=== PATIENT | male | born 1970 | race African-American/Black ===

== ENCOUNTER 2019-11-03 06:32 | Emergency (ER) | payer SELFPAY ==
[2019-11-03 06:35] VITALS: BP 120/80; PULSE 94; RESP 18; TEMP 36.4; O2SAT 100
--- NOTE | 2019-11-03 06:47 | ED.NAVMDI ---
HPI - Nausea/Vomiting/Diarrhea <Lawanda Cook MD - Last Filed: 11/03/19 06:52> General Chief complaint: Nausea/Vomiting/Diarrhea Stated complaint: diarrhea x 2 days Time Seen by Provider: 11/03/19 06:41 Source: patient Mode of arrival: Ambulatory Limitations: no limitations History of Present Illness HPI Narrative: 49-year-old gentleman with a previous history of gastric ulcers with laser surgery who presents with almost 72 hours of and liquid profuse diarrheal stool without blood, mucus or vomiting. He is from [place] and has been in the [place] area for the last 3 weeks working with the [employer]. He does not describe any unusual travels be on that, no and else around him has been ill and he has never had similar symptoms. He is not describing dizziness, orthostasis, abdominal pain, chest pain, dyspnea. Related Data Previous Rx's Medication Instructions Recorded omeprazole 40 mg PO DAILY #30 cap 11/03/19 Review of Systems <Lawanda Cook MD - Last Filed: 11/03/19 06:52> Review of Systems Narrative: All systems reviewed and are unremarkable except as noted in HPI and below Patient History <Lawanda Cook MD - Last Filed: 11/03/19 06:52> Medical History (Updated 11/03/19 @ 07:50 by Sherri Santiago DO) Gastric cardia ulcer (Acute) Surgical History (Updated 11/03/19 @ 06:52 by Lawanda Cook MD) History of gastric surgery (Acute) Social History Smoking Status: Current every day smoker Smoking Status: Current every day smoker alcohol intake frequency: a few times a week Substance Use Type: marijuana Exam <Lawanda Cook MD - Last Filed: 11/03/19 06:52> Narrative Exam Narrative: General: Healthy appearing, in no acute distress. Able to give a complete and coherent history. Well-nourished well-developed HEENT: Moist mucous membranes, normal sclera with reactive pupils, Neck: supple Respiratory: Lungs are clear to auscultation, no wheezing no rales no rhonchi. Full and symmetrical air movement Cardiac: Regular rate and rhythm no murmurs no bruits Abdomen: Soft nontender good bowel tones, no flank pain Skin: Warm and dry, no rashes Neurologic: Grossly neurologically intact with no obvious asymmetries or abnormalities Extremities: No trauma, well perfused Psych: Cooperative, appropriate insight and affect Initial Vital Signs Initial Vital Signs: Vital Signs Temperature 97.6 F 11/03/19 06:35 Pulse Rate 94 H 11/03/19 06:35 Respiratory Rate 18 11/03/19 06:35 Blood Pressure 120/80 11/03/19 06:35 Pulse Oximetry 100 11/03/19 06:35 <Sherri Santiago DO - Last Filed: 11/03/19 09:44> Initial Vital Signs Initial Vital Signs: Vital Signs Temperature 97.6 F 11/03/19 06:35 Pulse Rate 94 H 11/03/19 06:35 Respiratory Rate 18 11/03/19 06:35 Blood Pressure 120/80 11/03/19 06:35 Pulse Oximetry 100 11/03/19 06:35 Course <Lawanda Cook MD - Last Filed: 11/03/19 06:52> Orders Ordered: ED Orders 11/03/19 06:45 Complete Blood Count AUTO DIFF Stat Comprehensive Metabolic Panel Stat 11/03/19 07:00 GI Panel (Film Array) Stat Discontinued Medications Sodium Chloride (Normal Saline 0.9%) 1,000 mls @ 1,000 mls/hr IV BOLUS ONE Stop: 11/03/19 07:47 Last Infusion: 11/03/19 08:30 Dose: 0 mls/hr Documented by: Admin: 11/03/19 07:30 Dose: 1,000 mls/hr Documented by: ROBYN Vital Signs Vital signs: Vital Signs - 8 hr 11/03/19 06:35 11/03/19 08:07 11/03/19 09:19 Temperature 97.6 F Pulse Rate 94 H 73 78 Respiratory Rate 18 14 16 Blood Pressure 120/80 Blood Pressure [Right Arm] 124/64 125/72 Pulse Oximetry 100 100 100 <Sherri Santiago DO - Last Filed: 11/03/19 09:44> Orders Ordered: ED Orders 11/03/19 06:45 Complete Blood Count AUTO DIFF Stat Comprehensive Metabolic Panel Stat 11/03/19 07:00 GI Panel (Film Array) Stat Discontinued Medications Sodium Chloride (Normal Saline 0.9%) 1,000 mls @ 1,000 mls/hr IV BOLUS ONE Stop: 11/03/19 07:47 Last Infusion: 11/03/19 08:30 Dose: 0 mls/hr Documented by: Admin: 11/03/19 07:30 Dose: 1,000 mls/hr Documented by: ROBYN Vital Signs Vital signs: Vital Signs - 8 hr 11/03/19 06:35 11/03/19 08:07 11/03/19 09:19 Temperature 97.6 F Pulse Rate 94 H 73 78 Respiratory Rate 18 14 16 Blood Pressure 120/80 Blood Pressure [Right Arm] 124/64 125/72 Pulse Oximetry 100 100 100 MDM - Nausea/Vomiting/Diarrhea <Lawanda Cook MD - Last Filed: 11/03/19 06:52> Lab Data Result diagrams: 11/03/19 06:45 11/03/19 06:45 Labs: Lab Results 11/03/19 11/03/19 11/03/19 Range/Units 06:45 06:45 07:00 WBC 10.3 (4.5-11.0) X10^3/uL RBC 5.27 (4.5-5.9) X10^6/uL Hgb 15.1 (13.5-17.5) g/dL Hct 45.7 (41-53) % MCV 86.7 (80-100) fL MCH 28.7 (26-34) PG MCHC 33.0 (30-36) % RDW 14.2 (11.6-14.8) % Plt Count 283 (150-400) X10^3/uL Neut % (Auto) 60.0 (50-75) % Lymph % (Auto) 25.5 (25-40) % [place] % (Auto) 12.1 (3-14) % Eos % (Auto) 1.6 L (2-4) % Baso % (Auto) 0.8 (0-2) % Neut # (Auto) 6200 (1012-4368) /uL Lymph # (Auto) 2600 (0879-6773) /uL [place] # (Auto) 1200 H (0-900) /uL Eos # (Auto) 200 (0-450) /uL Baso # (Auto) 100 (0-100) /uL Sodium 137 (137-145) mmol/L Potassium 4.3 (3.4-5.1) mmol/L Chloride 102 (98-107) mmol/L Carbon Dioxide 27 (22-32) mmol/L BUN 18 (9-20) mg/dL Creatinine 1.16 (0.66-1.25) mg/dL Estimated GFR > 60.0 (>60) mL/min BUN/Creatinine Ratio 15.5 (6-22) Glucose 90 (70-100) mg/dL Calcium 9.3 (8.4-10.2) mg/dL Total Bilirubin 1.3 (0.2-1.3) mg/dL AST 41 (17-59) IU/L ALT 24 (<50) IU/L Alkaline Phosphatase 91 (38-126) U/L Total Protein 8.2 (6.3-8.2) g/dL Albumin 4.7 (3.5-5.0) g/dL Globulin 3.5 (1.7-4.1) g/dL Albumin/Globulin Ratio 1.3 (1.0-2.8) Stl C. cayetanensis PCR Not detected (Not Detect) Stool Rotavirus (PCR) Not detected (Not Detect) Stool Adenovirus (PCR) Not detected (Not Detect) Stool Astrovirus (PCR) Not detected (Not Detect) Stool Cryptosporidium PCR Not detected (Not Detect) Stl E.coli Shiga Tox PCR Not detected (Not Detect) St Sh/Enteroin Ecoli PCR Not detected (Not Detect) Stool E coli O157 PCR Not detected (Not Detect) Stl Enterotoxigenic E PCR Not detected (Not Detect) Stool EPEC (PCR) Not detected (Not Detect) Stl E. histolytica PCR Not detected (Not Detect) Stool Giardia Lamblia PCR Not detected (Not Detect) Stool Sapovirus (PCR) Not detected (Not Detect) Stl P. shigelloides PCR Not detected (Not Detect) St Y.enterocolitica PCR Not detected (Not Detect) Stool Vibrio (PCR) Not detected (Not Detect) Stl Vibrio cholerae PCR Not detected (Not Detect) Stl Enteroaggr Ecoli PCR Not detected (Not Detect) Stl Norovirus GI/GII PCR Not detected (Not Detect) Campylobacter (PCR) Not detected (Not Detect) C. difficile Tox (PCR) Not detected (Not Detect) Salmonella (PCR) Not detected (Not Detect) <Sherri Santiago, DO - Last Filed: 11/03/19 09:44> Lab Data Attestation: I reviewed the patient's lab results. Labs: Lab Results 11/03/19 11/03/19 11/03/19 Range/Units 06:45 06:45 07:00 WBC 10.3 (4.5-11.0) X10^3/uL RBC 5.27 (4.5-5.9) X10^6/uL Hgb 15.1 (13.5-17.5) g/dL Hct 45.7 (41-53) % MCV 86.7 (80-100) fL MCH 28.7 (26-34) PG MCHC 33.0 (30-36) % RDW 14.2 (11.6-14.8) % Plt Count 283 (150-400) X10^3/uL Neut % (Auto) 60.0 (50-75) % Lymph % (Auto) 25.5 (25-40) % [place] % (Auto) 12.1 (3-14) % Eos % (Auto) 1.6 L (2-4) % Baso % (Auto) 0.8 (0-2) % Neut # (Auto) 6200 (5674-5758) /uL Lymph # (Auto) 2600 (5024-4010) /uL [place] # (Auto) 1200 H (0-900) /uL Eos # (Auto) 200 (0-450) /uL Baso # (Auto) 100 (0-100) /uL Sodium 137 (137-145) mmol/L Potassium 4.3 (3.4-5.1) mmol/L Chloride 102 (98-107) mmol/L Carbon Dioxide 27 (22-32) mmol/L BUN 18 (9-20) mg/dL Creatinine 1.16 (0.66-1.25) mg/dL Estimated GFR > 60.0 (>60) mL/min BUN/Creatinine Ratio 15.5 (6-22) Glucose 90 (70-100) mg/dL Calcium 9.3 (8.4-10.2) mg/dL Total Bilirubin 1.3 (0.2-1.3) mg/dL AST 41 (17-59) IU/L ALT 24 (<50) IU/L Alkaline Phosphatase 91 (38-126) U/L Total Protein 8.2 (6.3-8.2) g/dL Albumin 4.7 (3.5-5.0) g/dL Globulin 3.5 (1.7-4.1) g/dL Albumin/Globulin Ratio 1.3 (1.0-2.8) Stl C. cayetanensis PCR Not detected (Not Detect) Stool Rotavirus (PCR) Not detected (Not Detect) Stool Adenovirus (PCR) Not detected (Not Detect) Stool Astrovirus (PCR) Not detected (Not Detect) Stool Cryptosporidium PCR Not detected (Not Detect) Stl E.coli Shiga Tox PCR Not detected (Not Detect) St Sh/Enteroin Ecoli PCR Not detected (Not Detect) Stool E coli O157 PCR Not detected (Not Detect) Stl Enterotoxigenic E PCR Not detected (Not Detect) Stool EPEC (PCR) Not detected (Not Detect) Stl E. histolytica PCR Not detected (Not Detect) Stool Giardia Lamblia PCR Not detected (Not Detect) Stool Sapovirus (PCR) Not detected (Not Detect) Stl P. shigelloides PCR Not detected (Not Detect) St Y.enterocolitica PCR Not detected (Not Detect) Stool Vibrio (PCR) Not detected (Not Detect) Stl Vibrio cholerae PCR Not detected (Not Detect) Stl Enteroaggr Ecoli PCR Not detected (Not Detect) Stl Norovirus GI/GII PCR Not detected (Not Detect) Campylobacter (PCR) Not detected (Not Detect) C. difficile Tox (PCR) Not detected (Not Detect) Salmonella (PCR) Not detected (Not Detect) MDM Narrative Medical decision making narrative: Patient signed out to myself by Dr. Cook, labs resulted except for GI panel. Patient is tolerating orals and believes he can give a sample. Vitals stable in department. Patient seen by myself, HPI and exam agree with above stated. GI panel is negative. Discussed with patient he has had diarrhea without other symptoms. He states that the only time he had similar symptoms as when he out ulcer. We discussed he can try Imodium for the short-term see if this is helpful. Can also try a short course of PPI as he has ulcers in the past although he is not having any other symptoms but he is not taking any medication at this time either. We discussed return precautions patient feels comfortable with this he feels better at this time like to return home. All questions answered. Discharge Plan Departure Patient Disposition: Home Clinical Impression: Diarrhea Discharge Date/Time: 11/03/19 09:25 Instructions: Diarrhea Activity Restrictions/Additional Instructions: Follow up in the next 2-3 days for recheck if you are having no improvement in your symptoms. You may take Immodium over the counter for symptoms. You may take 2 tablets by mouth, followed by 1 tablet after each loose stool. Maximum 4 tablets in 24 hours. Take omeprazole 1 tablet daily Make sure you are drinking plenty of fluids to stay hydrated. Return to ER for fevers greater than 100.4F, new abdominal pain, black or bloody stools, persistent vomiting, signs of dehydration, passing out or other new or concerning symptoms. Prescriptions: New omeprazole 40 mg capsule,delayed release(DR/EC) 40 mg PO DAILY Qty: 30 RF: 0 Stand Alone Forms: Work Release Note
[2019-11-03 06:56] LABS: Add Manual Diff / Slide Review NO; Basophils Absolute Auto 100 /uL (0-100); Basophils Percent Auto 0.8 % (0-2); Eosinophils Absolute Auto 200 /uL (0-450); Eosinophils Percent Auto 1.6 % (2-4); Hematocrit 45.7 % (41-53); Hemoglobin 15.1 g/dL (13.5-17.5); Lymphocytes Absolute Auto 2600 /uL (1100-4500); Lymphocytes Percent Auto 25.5 % (25-40); Mean Corpuscular Hemoglobin 28.7 PG (26-34); Mean Corpuscular Volume 86.7 fL (80-100); Monocytes Absolute Auto 1200 /uL (0-900); Monocytes Percent Auto 12.1 % (3-14); Neutrophils Absolute Auto 6200 /uL (1500-7000); Platelet Count 283 X10^3/uL (150-400); Red Blood Cell Count 5.27 X10^6/uL (4.5-5.9); Red Cell Distribution Width 14.2 % (11.6-14.8); White Blood Cell Count 10.3 X10^3/uL (4.5-11.0)
[2019-11-03 07:01] LABS: Alanine Aminotransferase 24 IU/L (<50); Albumin 4.7 g/dL (3.5-5.0); Albumin Globulin Ratio 1.3 (1.0-2.8); Alkaline Phosphatase 91 U/L (38-126); Aspartate Aminotransferase 41 IU/L (17-59); BUN Creatinine Ratio 15.5 (6-22); Bilirubin Total 1.3 mg/dL (0.2-1.3); Blood Urea Nitrogen 18 mg/dL (9-20); Calcium 9.3 mg/dL (8.4-10.2); Carbon Dioxide 27 mmol/L (22-32); Chloride 102 mmol/L (98-107); Estimated Glomerular Filt Rate > 60.0 mL/min (>60); Globulin 3.5 g/dL (1.7-4.1); Glucose 90 mg/dL (70-100); HEMOLYSIS 16 (0-50); Potassium 4.3 mmol/L (3.4-5.1); Sodium 137 mmol/L (137-145); Total Protein 8.2 g/dL (6.3-8.2)
[2019-11-03] MEDS: SODIUM CHLORIDE 0.9% 1,000 ML 1000 ML IV (07:30)
[2019-11-03 08:07] VITALS: BP 124/64; PULSE 73; RESP 14; O2SAT 100
[2019-11-03 09:04] LABS: Adenovirus F 40/41 Not Detected (Not Detect); Astrovirus Not Detected (Not Detect); Campylobacter Not Detected (Not Detect); Clostridium difficile toxin AB Not Detected (Not Detect); Cryptosporidium Not Detected (Not Detect); Cyclospora cayetanensis Not Detected (Not Detect); Entamoeba histolytica Not Detected (Not Detect); Enteroaggregative E.coli Not Detected (Not Detect); Enteropathogenic E.coli Not Detected (Not Detect); Enterotoxigenic E.coli It/st Not Detected (Not Detect); Giardia lamblia Not Detected (Not Detect); Norovirus GI/GII Not Detected (Not Detect); Plesiomonsa shigelloides Not Detected (Not Detect); Rotavirus A Not Detected (Not Detect); Salmonella Not Detected (Not Detect); Sapovirus Not Detected (Not Detect); Shiga-like toxin-prod E.coli Not Detected (Not Detect); Shigella/Enteroinvasive E.coli Not Detected (Not Detect); Vibrio Not Detected (Not Detect); Vibrio cholerae Not Detected (Not Detect); Yersinia enterocolitica Not Detected (Not Detect)
[2019-11-03 09:19] VITALS: BP 125/72; PULSE 78; RESP 16; O2SAT 100
== END 2019-11-03 09:25 | disposition home or self-care (01) ==
PROVIDERS: Emergency Medicine; Emergency Provider Emergency Medicine
DX: R19.7 Diarrhea, unspecified (principal)
CPT/HCPCS: 36415; 80053; 85025; 87507; 96360; 99284